=== PATIENT | female | born 1995 | race Caucasian/White ===

== ENCOUNTER → 2019-08-09 | Outpatient (CLI) | payer OTHER ==
--- NOTE | 2019-08-09 17:44 | REP ---
Obstetric sonography: History: Supervision of for anatomy. Findings: Scanning through the gravid uterus demonstrates a viable single intrauterine gestation in a transverse head to the maternal left lie. motion is observed and heart rate is recorded at 152 beats per minute. A posterior grade zero placenta is seen without evidence of previa or abruption. Amniotic fluid is subjectively normal. Closed cervical length is visualized transabdominally measures 4.3 cm. No extrauterine abnormalities observed. No anomaly is seen. lungs, four-chamber heart and ventricular outflow tract views are less than optimally achieved due to position. The following additional anatomic structures are identified and felt to be sonographically unremarkable: cranium, choroid plexus, cavum, cerebellum posterior fossa, face and profile, diaphragm, left-sided stomach, abdominal wall cord insertion, three-vessel umbilical cord, kidneys and bladder, spine, upper and lower extremities. Biometry chart: BPD 3.8 cm 17 weeks 4 days head circumference 14.5 cm 17 weeks 5 days Abdominal circumference 12.2 cm 17 weeks 6 days Femur length 2.5 cm 17 weeks 4 days humeral length 2.8 cm 18 weeks 6 days HC/AC ratio normal 1.19, cephalic index normal 0.71, estimated weight 207 grams, 0 pounds 7 ounces, 26 percentile for 18 weeks 2 days. Impression: Viable single intrauterine gestation at 17 weeks 6 days by today's composite sonographic criteria. KENDALL by today's sonography January 11, 2020. heart and lungs less than optimally seen due to position. Electronically Signed by Gerard Diego MD 08/09/2019 06:46 P
== END ==
LOC: M RAD 13:38
PROVIDERS: ATTEND Advanced Practice Midwife
DX: Z34.82 Encounter for supervision of other normal pregnancy, second trimester (principal)

== ENCOUNTER → 2019-09-04 | Outpatient (CLI) | payer OTHER ==
--- NOTE | 2019-09-04 13:44 | REP ---
OB ULTRASOUND: Real-time sonographic evaluation of the gravid uterus performed. There is a single living intrauterine gestation. The estimated gestational age is 22 weeks 0 days, EDC 01/08/2020. Today's measurements indicate appropriate growth. Biometry and Growth: BPD 49 mm = 20 weeks 6 days, 21st percentile HC 189 mm = 21 weeks 1 day, 25th percentile AC 166 mm = 21 weeks 5 days, 43rd percentile FL 36 mm = 21 weeks 2 days, 32nd percentile HC/AC ratio 1.14 within normal range Estimated weight 424 grams 29th percentile. SEEN/GROSSLY UNREMARKABLE Lateral ventricles Yes Posterior fossa Yes Upper lip Yes Four-chamber heart Yes LVOT Yes RVOT Yes Stomach Yes Cord insertion Yes Three vessel cord Yes Kidneys Yes Bladder Yes Spine Yes Cervical length: Cervix is closed and measures 3.8 cm in length. heart rate: 153 beats per minute. position: Vertex. Placenta: Posterior and grade 0 with no previa or abruption. Amniotic fluid: Within normal limits. Unreviewed
== END ==
LOC: M RAD 09:48
PROVIDERS: ATTEND Advanced Practice Midwife
DX: Z34.82 Encounter for supervision of other normal pregnancy, second trimester (principal)